=== PATIENT | female | born 1950 | race Caucasian/White ===

== ENCOUNTER → 2016-12-03 | Outpatient (CLI) | payer MEDICARE, BC ==
[~2016-12-03] MED LIST: CALCIUM 600+D1 EACH PO; FISH OIL 1,2001 EAC1 PO; NEPHROCAPS QT1 EACH PO; NO MEDICATIONS; ZYRTEC10 M1 PO; [UNRECOGNIZED DRUG - OTHER] PO
--- NOTE | ~2016-12-03 | MR17 ---
[facility] A Service of [facility] & [facility] RADIOLOGY TEXT RESULTS PATIENT: MARYANN JACOBS LOCATION: [facility] : 48 UNIT #: [id number] AGE: [address]: Andrzej Paula II, MD SEX: F ORDER DR: [id number] [facility] [address] [place], [place] [address] [id number] O MR#: [id number] Acc #: [id number] NAME: MARYANN JACOBS : 1950 SEX: F STUDY DATE/TIME: 12/03/2016 9:54 UNIT: [facility] ROOM: STUDY DESCRIPTION: MR Brain WWo Contrast Attending Physician: Andrzej Paula II., M.D. Referring Physician: Andrzej Paula II., M.D. Ordering Physician: Andrzej Paula II., M.D. Primary Care Physician: Juan J Shane M.D. MRI CENTER REPORT This report is preliminary unless electronic signature is present. EXAM Brain MRI with and without HISTORY Muscular fasciculations, twitching right eye, right eye drooping, started 10/21/2016. Symptoms off and on. Facial twitching. History of melanoma 15-20 years ago. COMMENT MRI of the brain was performed prior to and following intravenous administration of 12 mL of MultiHance. The comparison study is from 10/21/2016. There is no evidence for a recent ischemic insult on the diffusion series. No Chiari-1 malformation. There are degenerative changes of the cervical spine partly seen with at least a component of canal stenosis. There is moderate white matter disease involving subcortical deep and periventricular white matter most confluent in the periventricular white matter and there are too numerous to count small lacunar-type insults in the bilateral basal ganglia and thalami. Findings are all probably due to small vessel disease and a basal ganglionic insult could be related to the described symptoms such as a blepharospasm. There is no extraaxial fluid collection. There is no intracranial mass effect. The major intracranial flow voids are maintained. The mastoid air cells are clear. The paranasal sinuses are clear. Patient has had cataract surgery bilaterally. Following contrast administration, there is no pathologic intracranial enhancement. No intracranial mass lesion or mass effect. No MRI evidence for intracranial hemorrhage. IMPRESSION 1. No evidence for a recent ischemic insult on the diffusion series. 2. Overall fairly extensive probable sequelae of small vessel disease including too numerous to count small lacunar-type insults in STS. [facility] A Service of [facility] & [facility] RADIOLOGY TEXT RESULTS PATIENT: MARYANN JACOBS [facility] UNIT #: [id number] AGE: [address]: Andrzej Paula II, MD SEX: F ORDER DR: the basal ganglia and thalami. 3. No intracranial mass lesion, mass effect, or pathologic intracranial enhancement. Dictated by... Zuri Darden M.D. THIS IS AN ELECTRONICALLY VERIFIED REPORT Zuri Darden M.D. at 12/03/2016 4:31 PM DOLORES/amy TD: 12/03/2016 14:37 JOB #: [id number] MRI CENTER REPORT COPY
[2016-12-03 11:41] LABS: POC - CREATININE 0.57 mg/dL (0.44-1.03); POC - GFR >60.0 mL/min (>60)
== END | disposition home or self-care (01) ==
LOC: CMRI 08:28
PROVIDERS: Psychiatry & Neurology Neurology
DX: R25.3 Fasciculation (principal); R93.0 Abnormal findings on diagnostic imaging of skull and head, not elsewhere classified
CPT/HCPCS: 70553; 82565; A9577

== ENCOUNTER → 2017-02-09 | Outpatient (CLI) | payer MEDICARE, BC ==
--- NOTE | ~2017-02-09 | MY11 ---
[facility] A Service of [facility] & [facility] RADIOLOGY TEXT RESULTS PATIENT: MARYANN JACOBS LOCATION: [facility] : 49 UNIT #: [id number] AGE: [address]: JOHANA SHANE MD (INT MED) SEX: F ORDER DR: [id number] [facility] [address] [place], [place] [address] [id number] O MR#: [id number] Acc #: [id number] NAME: MARYANN JACOBS : 1950 SEX: F STUDY DATE/TIME: 02/09/2017 8:09 UNIT: [facility] ROOM: STUDY DESCRIPTION: MY Mammogram Screening Dig [place] Attending Physician: Johana Shane M.D. Referring Physician: Johana Shane M.D. Ordering Physician: Johana Shane M.D. Primary Care Physician: Johana Shane M.D. MEDICAL IMAGING REPORT This report is preliminary unless electronic signature is present EXAM Digital screening mammogram, 02/09/2017 HISTORY 66-year-old woman no risk elevation. Annual screening. COMPARISON 12/18/2014 FINDINGS Digital imaging of each breast was completed utilizing a two-view examination of each breast in craniocaudal and mediolateral-oblique projections. Review and interpretation of digital mammograms include a second review in conjunction with FDA-approved CAD device. There is a normal parenchymal presentation bilaterally consistent with the patient's age. There are no breast masses imaged and no parenchymal asymmetry is visualized. There are no suspicious microcalcifications and I see no focal architectural disturbance. IMPRESSION Negative screening digital mammogram. One-year followup recommended. Patients over the age of 40 are entered into a reminder system with target due date for the next mammogram. A result letter will also be sent to the patient. BIRADS: 1 Negative Dictated by... Joey Dukes M.D. THIS IS AN ELECTRONICALLY VERIFIED REPORT Joey Dukes M.D. at 02/09/2017 9:32 AM [facility] A Service of [facility] & [facility] RADIOLOGY TEXT RESULTS PATIENT: MARYANN JACOBS LOCATION: [facility] : 49 UNIT #: [id number] AGE: [address]: JOHANA SHANE MD (INT MED) SEX: F ORDER DR: Julieta TD: 02/09/2017 09:11 JOB #: [id number] MEDICAL IMAGING REPORT Page 1 of 1 COPY
== END | disposition home or self-care (01) ==
LOC: CWCC 07:53
DX: Z12.31 Encounter for screening mammogram for malignant neoplasm of breast (principal)
CPT/HCPCS: G0202

== ENCOUNTER → 2017-06-07 | Outpatient (CLI) | payer MEDICARE, BC ==
--- NOTE | ~2017-06-07 | US128 ---
[id number] [facility] [address] [place], [place] [address] [id number] O MR#: [id number] Acc #: [id number] NAME: MARYANN JACOBS : 1950 SEX: F STUDY DATE/TIME: 06/07/2017 11:41 UNIT: [facility] ROOM: STUDY DESCRIPTION: Thyroid Attending Physician: Juan J Shane M.D. Referring Physician: Juan J Shane M.D. Ordering Physician: Juan J Shane M.D. Primary Care Physician: Juan J Shane M.D. MEDICAL IMAGING REPORT This report is preliminary unless electronic signature is present EXAM Thyroid sonogram. CLINICAL HISTORY 67-year-old female with cough, hoarseness x6 months. Not currently on thyroid medication. FINDINGS Real time examination demonstrates mild thyromegaly with mild enlargement the right lobe of thyroid gland measuring 4.4 cm x 2.5 cm x 1.9 cm. The left lobe measures 4.4 cm x 1.5 cm x 1.7 cm. There are multiple bilateral thyroid nodules. In the left lobe there is a small, predominantly hypoechoic solid 5.3 mm x 6.1 mm x 6.7 mm nodule in the midportion of the left lobe of the thyroid gland. In the right lobe of thyroid gland. There are three nodules. In the inferior aspect of the gland there is a 7.5 mm x 8 mm x 10.2 mm mixed solid cystic lesion. In the midportion of the gland there is a 7.1 mm x 7.5 mm x 9.5 mm predominately solid nodule. In the inferior aspect of the right lobe of the thyroid gland there is a 7.5 mm x 9.8 mm x 10.2 mm predominately solid nodule which is slightly hypoechoic to background thyroid tissue. Extrathyroidal soft tissues unremarkable. Color Doppler demonstrates prominent flow around the periphery of the solid nodule in the right lobe. This is more supportive of a benign etiology. IMPRESSION Multiple thyroid nodules in a mildly enlarged thyroid gland may represent a multinodular goiter. The largest nodule is seen in the inferior aspect of the right lobe of thyroid gland and is predominately solid. Based on current criteria this represents a moderately suspicious nodule. Current recommendations for a lesion of this size would be for short-term interval followup with a followup ultrasound 6 months to confirm stability. Dictated by... Steffanie Sanon M.D. THIS IS AN ELECTRONICALLY VERIFIED REPORT Steffanie Sanon M.D. at 06/09/2017 7:55 AM DAMARIS/amol TD: 06/08/2017 23:03 JOB #: [id number] MEDICAL IMAGING REPORT Page 1 of 1 COPY
== END | disposition home or self-care (01) ==
LOC: CWCC 11:28
DX: E04.1 Nontoxic single thyroid nodule (principal); E04.2 Nontoxic multinodular goiter
CPT/HCPCS: 76536